=== PATIENT | female | born 1950 | race Caucasian/White ===

== ENCOUNTER 2018-04-04 06:19 | Inpatient (IN) | payer OTHER, BC ==
[2018-04-03 09:41] VITALS: BMI 45.9
[2018-04-04] MEDS ORDERED: PROPOFOL 20 ML ONE ×2 (07:49)
[2018-04-04] MEDS ORDERED: ROCURONIUM BROMIDE 50 MG/5 ML VIAL ONE ×3 (07:49→12:12)
[2018-04-04] MEDS ORDERED: MIDAZOLAM HCL 2 MG/2 ML SINGLE DOSE VIAL ONE (07:49)
[2018-04-04] MEDS ORDERED: LIDOCAINE HCL/PF 2% SDV 5ML VIAL ONE (07:50)
[2018-04-04] MEDS ORDERED: THROMBIN (BOVINE) 20,000 UNIT VIAL TP ONE (08:07)
[2018-04-04] MEDS ORDERED: VANCOMYCIN 1,000 MG VIAL (RESTRICTED TO ID ONLY) ONE ×2 (08:07→08:32)
[2018-04-04] MEDS ORDERED: GENTAMICIN SO4 80 MG/2 ML VIAL ONE (08:07)
--- NOTE | 2018-04-04 08:18 | HP ---
History & Physical Update - History History: No Change - Physical Physical: No Change - Assessment Assessment: No Change - Plan Plan: No Change (no change since visit on 03/30/18)
[2018-04-04] MEDS ORDERED: SODIUM CHLORIDE 0.9% P/F 10 ML VIAL IJ ONE ×2 (08:32→12:37)
[2018-04-04] MEDS ORDERED: ceFAZolin SODIUM 1 GM VIAL ONE ×3 (08:32→20:00)
[2018-04-04] MEDS ORDERED: ceFAZolin SODIUM 1 GM VIAL IVPB ONE (08:33)
[2018-04-04] MEDS ORDERED: VANCOMYCIN 1,000 MG VIAL (RESTRICTED TO ID ONLY) IVPB ONE (08:34)
[2018-04-04] MEDS ORDERED: DEXAMETHASONE SOD PHOSPHATE 4 MG/1 ML VIAL ONE (08:45)
[2018-04-04] MEDS ORDERED: ONDANSETRON 4 MG/2 ML VIAL ONE (08:45)
[2018-04-04] MEDS ORDERED: THROMBIN (BOVINE) 5,000 UNIT VIAL TP ONE (10:50)
[2018-04-04] MEDS ORDERED: ONDANSETRON 4 MG/2 ML VIAL IVPUSH PRN ×2 (11:09→13:50)
[2018-04-04] MEDS ORDERED: DEXAMETHASONE SOD PHOSPHATE 4 MG/1 ML VIAL IVPUSH PRN (11:09)
[2018-04-04] MEDS ORDERED: PROMETHAZINE HCL 25 MG/1 ML VIAL IVPB PRN (11:09)
[2018-04-04] MEDS ORDERED: LACTATED RINGERS SOLUTION 1,000 ML IV SCH (11:15)
[2018-04-04] MEDS ORDERED: ACETAMINOPHEN INJECTION 100 ML IVPB ONE (11:41)
[2018-04-04] MEDS ORDERED: GLYCOPYRROLATE 0.2 MG/1 ML VIAL ONE (11:54)
[2018-04-04] MEDS ORDERED: NEOSTIGMINE METHYLSULFATE 0.5 MG/ML - 10 ML MDV ONE (11:54)
--- NOTE | 2018-04-04 11:59 | EKG ---
Test Reason : Blood Pressure : / mmHG Vent. Rate : 064 BPM Atrial Rate : 064 BPM P-R Int : 186 ms QRS Dur : 074 ms QT Int : 414 ms P-R-T Axes : 060 -25 027 degrees QTc Int : 427 ms NORMAL SINUS RHYTHM LOW VOLTAGE QRS NONSPECIFIC ST AND T WAVE ABNORMALITY ABNORMAL ECG Confirmed by MD LAURIE, TERA ([id number]) on 04/04/2018 11:58:46 AM Referred By: YUE CARSON Confirmed By:TERA SULLIVAN MD
[2018-04-04] MEDS ORDERED: BUPIVACAINE HCL/PF 0.5% (5MG/ML) 10 ML VIAL ONE (12:21)
[2018-04-04] MEDS ORDERED: diphenhydrAMINE HCL 25 MG CAPSULE (FP) PO PRN (13:50)
[2018-04-04] MEDS ORDERED: NITROGLYCERIN SUBLINGUAL 1/150 0.4 MG TAB SL PRN (14:03)
--- NOTE | 2018-04-04 14:29 | OP ---
Operative Note - Note: Operative Date: 04/04/18 Pre-Operative Diagnosis: lumbar stenosis, Degenerative disc disease, splondylosis, Operation: L3-S1 lumbar laminectomies with microdiscectomies and interbody cages at L4-L5 and L5-S1, and posterior fuison. Post-Operative Diagnosis: Same as Pre-op Surgeon: Cleveland Kimble Physician Anesthesiologist: Lori Velasquez Anesthesiologist/CARDIOLOGY NURSE PRACTITIONER: Julio Rosenbaum Anesthesia: General Estimated Blood Loss (mls): 750 Drains & Tubes with Location: J/P to at right lumbar paravetebral area Drains, Volume Out (mls): 100 (maloney) Fluid Volume Replaced (mls): 2,300 Operative Report Dictated: Yes
--- NOTE | 2018-04-04 14:33 | SURG ---
Surgery Sexologist Note Sexologist: Lori Velasquez PA-C Date of Service: 04/04/18 Diagnosis: lumbar stenosis, Degenerative disc disease, splondylosis, Procedure: L3-S1 lumbar laminectomies with microdiscectomies and interbody cages at L4-L5 and L5-S1, and posterior fuison. I was present for the entirety of the operative procedure. For further detail, please refer to operative report. Visit type - Case Type Case Type: Scheduled - Emergency Emergency Visit: No - New patient This patient is new to me today: Yes Date on this admission: 04/04/18
[2018-04-04] MEDS: LACTATED RINGERS SOLUTION 1,000 ML/1,000 ML INFUS.BAG IV SCH (14:50)
[2018-04-04] MEDS ORDERED: HYDROmorphone *PCA* 10MG/50ML DISP.SYRIN PCA SCH (15:30)
[2018-04-04] MEDS: DOCUSATE SODIUM 100 MG CAPSULE (FP) PO SCH ×2 (16:00→21:39)
[2018-04-04] MEDS ORDERED: PNEUMOC 13-VAL CONJ-DIP CRM/PF 0.5 ML DISP.SYRIN IM ONE (17:00)
[2018-04-04] MEDS ORDERED: ALPRAZolam 2 MG TABLET PO PRN (20:00)
[2018-04-04] MEDS ORDERED: CEFAZOLIN 1 GM in DEXTROSE 5%-WATER - 50 ML IVPB SCH (20:00)
[2018-04-04] MEDS ORDERED: CEFAZOLIN 1 GM/D5W 1 GM/50 ML BAG IVPB SCH (20:00)
[2018-04-04] MEDS ORDERED: DEXTROSE 5%-WATER - 50 ML IVPB ONE (20:00)
[2018-04-04] MEDS: CEFAZOLIN 1 GM in DEXTROSE 5%-WATER - 50 ML IVPB SCH (20:04)
[2018-04-04] MEDS: HEPARIN NA (PORCINE) 5,000 UNITS/ML 1ML VIAL SQ SCH (21:39)
[2018-04-04] MEDS: SOLIFENACIN SUCCINATE 5 MG TAB (FP) PO SCH (21:39)
[2018-04-05] MEDS ORDERED: ceFAZolin SODIUM 1 GM VIAL ONE ×3 (04:00→20:39)
[2018-04-05] MEDS ORDERED: DEXTROSE 5%-WATER - 50 ML IVPB ONE ×3 (04:00→20:39)
[2018-04-05] MEDS: CEFAZOLIN 1 GM in DEXTROSE 5%-WATER - 50 ML IVPB SCH ×3 (04:02→20:42)
[2018-04-05] MEDS: HEPARIN NA (PORCINE) 5,000 UNITS/ML 1ML VIAL SQ SCH ×3 (05:54→21:15)
[2018-04-05] MEDS: DOCUSATE SODIUM 100 MG CAPSULE (FP) PO SCH ×3 (05:54→21:15)
[2018-04-05 08:39] LABS: HEMATOCRIT 29.2 % (32.4-45.2); HEMOGLOBIN 9.8 GM/dL (10.7-15.3); MCH 29.2 pg (25.7-33.7); MCHC 33.5 g/dl (32.0-36.0); MEAN CELL VOLUME 87.3 fl (80-96); MEAN PLT VOLUME 7.4 fl (7.5-11.1); PLATELET COUNT 234 K/MM3 (134-434); RBC 3.34 M/mm3 (3.60-5.2); RDW 14.4 % (11.6-15.6); WHITE BLOOD COUNT 18.1 K/mm3 (4.0-10.0)
[2018-04-05] MEDS ORDERED: HYDROmorphone HCL CARPU-JECT 1 MG/1 ML DISP.SYRIN IVPB PRN ×2 (09:00→09:04)
[2018-04-05 09:03] LABS: BLOOD UREA NITROGEN 26 mg/dL (7-18); CALCIUM 8.2 mg/dL (8.5-10.1); CHLORIDE 103 mmol/L (98-107); GLUCOSE,RANDOM 143 mg/dL (74-106); POTASSIUM 3.9 mmol/L (3.5-5.1); SODIUM 138 mmol/L (136-145)
--- NOTE | 2018-04-05 09:03 | PN ---
Progress Note (short form) - Note Progress Note: Post op day#1.S/P L3-S1 Laminectomy with decompression,instrumentation,fusion and interbody cage placement under Ga uneventful.Patient stable and c/o pain score of 2-3/10 on Dilaudid continuous pickling line pickler helper.DISPENSING OPTICIAN is DC today and patient put on PRN pain medication.No any anesthesia related problem.Patient DC from the anesthesia care.
[2018-04-05 09:05] LABS: ANION GAP 6 (8-16); CO2 29 mmol/L (21-32)
--- NOTE | 2018-04-05 09:38 | PN ---
Progress Note (short form) - Note Progress Note: SUrgery POD #1 L3-S1 lumbar laminectomies with microdiscectomies and interbody cages at L4-L5 and L5-S1, and posterior fuison. Patient seen and examined at bedside with no complaints. Her pain is well controlled with PIPE SETTER and she is tolerating her diet. She denies any CP, SOB, Nausea, chills or fever. Of note Patient states she has history of esophageal spasm which is intermittent and occurs with irritation and she has vomited once as a result this morning. She had a formal work up in the past but was not diagnosed with dysphagia does not have swallowing difficulty. Vital Signs Temp 99 F 04/05/18 06:47 Pulse 20 L 04/05/18 06:47 Resp 20 04/05/18 02:10 BP 90/54 04/05/18 06:47 Pulse Ox 97 04/04/18 21:00 Intake & Output 04/04/18 04/04/18 04/05/18 11:59 23:59 11:59 Intake Total 2350 913 863 Output Total 850 900 370 Balance 1500 13 493 Intake: IV 2350 863 813 LACTATED RINGERS SOLUTION 563 813 1,000 ml In 1,000 ml @ 125 mls/hr IV ASDIR PAM Rx#:[id number] IVPB 50 50 Output: Drainage 450 120 Right Lower Back 300 120 Urine 100 450 250 Carlin 300 250 Estimated Blood Loss 750 Other: Voiding Method Indwelling Catheter CBC, BMP 04/05/18 06:30 04/05/18 06:30 PE: A&Ox3, NAD unlabored resp on RA Lumbar spine dressing c/d/i with j/p drain in good position and draining SS d/c , surrounding tissue intact. b/l LE compartments soft, supple and non-tender to palpation with +2 pedal pulses. + dorsi/plantar flexion b/l Problem List - Problems (1) Discogenic syndrome, lumbar Assessment/Plan: POD#1 L3-S1 Laminectomy with interbody fusion doing well 1) TLSO brace when OOB 2) OOB as tolerated 3) DVT and GI prophylaxis 4) D/C planning home vs rehab Code(s): M51.26 - OTHER INTERVERTEBRAL DISC DISPLACEMENT, LUMBAR REGION
[2018-04-05] MEDS: LOSARTAN POTASSIUM 50 MG TABLET (FP) PO SCH (10:14)
[2018-04-05] MEDS: HYDROCHLOROTHIAZIDE 25 MG TABLET (FP) PO SCH (10:14)
[2018-04-05] MEDS: FERROUS SO4 325 MG TABLET (FP) PO SCH (10:14)
[2018-04-05] MEDS: FOLIC ACID 1 MG TABLET (FP) PO SCH (10:14)
[2018-04-05] MEDS: PANTOPRAZOLE 40 MG TABLET (FP) PO SCH (10:14)
--- NOTE | 2018-04-05 10:50 | HP ---
Admitting History and Physical - Past Medical History FERN PICKER: No: CVA Cardiovascular: Yes: HTN. 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) Home Medications - Allergies Allergies/Adverse Reactions: Allergies Allergy/AdvReac Type Severity Reaction Status Date / Time No Known Drug Allergies Allergy Verified 04/04/18 14:51 naproxen AdvReac Severe Vomiting Verified 04/04/18 07:07 - Home Medications Home Medications: Ambulatory Orders Metoprolol Succinate [Toprol Xl] 50 mg PO DAILY 09/11/14 Nitroglycerin Sublingual [Nitrostat -] 0.4 mg SL PRN PRN 09/11/14 Solifenacin Succinate [VESIcare] 10 mg PO HS 09/11/14 Acetaminophen [Tylenol] 650 mg PO PRN PRN 09/24/14 Diltiazem Cd [Cardizem Cd -] 240 mg PO DAILY 09/24/14 Losartan/Hydrochlorothiazide [Losartan-Hctz 100-25 mg Tab] 1 each PO DAILY 09/24 Pantoprazole Sodium [Protonix -] 40 mg PO DAILY #40 tablet.ec 09/30/14 Alprazolam 1 mg PO PRN PRN 04/03/18 Aspirin [Ecotrin] 81 mg PO DAILY 04/03/18 Cholecalciferol (Vitamin D3) [Vitamin D3 -] 400 unit PO DAILY 04/03/18 Multivit-Min/Iron/Folic/Lutein [Centrum Silver Women Tablet] 1 each PO DAILY 06/13 Physical Examination Vital Signs: Vital Signs Temperature 99 F 04/05/18 06:47 Pulse Rate 20 L 04/05/18 06:47 Respiratory Rate 20 04/05/18 02:10 Blood Pressure 90/54 04/05/18 06:47 O2 Sat by Pulse Oximetry (%) 97 04/04/18 21:00 Labs: CBC, BMP 04/05/18 06:30 04/05/18 06:30 Problem List - Problems (1) Discogenic syndrome, lumbar Assessment/Plan: Operative Date: 04/04/18 Pre-Operative Diagnosis: lumbar stenosis, Degenerative disc disease, splondylosis, Operation: L3-S1 lumbar laminectomies with microdiscectomies and interbody cages at L4-L5 and L5-S1, and posterior fuison. Post-Operative Diagnosis: Same as Pre-op Surgeon: Cleveland Kimble Cut Lace Machine Operator: Lori Velasquez Anesthesiologist/MARBLE WORKER: Julio Rosenbaum Further plan per ns Code(s): M51.26 - OTHER INTERVERTEBRAL DISC DISPLACEMENT, LUMBAR REGION (2) HTN (hypertension) Assessment/Plan: -monitor Vital Signs Period Temp Pulse Resp BP Sys/Jennings Pulse Ox Last 24 Hr 97.4 F-99 F 20-77 15-20 90-105/52-69 94-100 Code(s): I10 - ESSENTIAL (PRIMARY) HYPERTENSION (3) Leukocytosis Assessment/Plan: -pt received steroids -follow Code(s): D72.829 - ELEVATED WHITE BLOOD CELL COUNT, UNSPECIFIED (4) Hyperglycemia Assessment/Plan: -monitor -a1c Code(s): R73.9 - HYPERGLYCEMIA, UNSPECIFIED (5) Obesities, morbid Code(s): E66.01 - MORBID (SEVERE) OBESITY DUE TO EXCESS CALORIES
[2018-04-05 12:20] LABS: ALBUMIN 2.7 g/dl (3.4-5.0); ALK PHOS 48 U/L (45-117); BILIRUBIN,DIRECT < 0.2 mg/dL (0.0-0.2); BILIRUBIN,TOTAL 0.3 mg/dL (0.2-1.0); SGOT/AST 20 U/L (15-37); SGPT/ALT 19 U/L (12-78); TOT PROT 5.4 g/dl (6.4-8.2)
[2018-04-05 12:59] LABS: URINE APPEARANCE CLEAR; URINE BILIRUBIN NEGATIVE (<2.0 mg/dL); URINE COLOR YELLOW; URINE GLUCOSE (UA) NEGATIVE (NEGATIVE); URINE KETONE NEGATIVE (NEGATIVE); URINE LEUK ESTERASE NEGATIVE (NEGATIVE); URINE NITRITE NEGATIVE (NEGATIVE); URINE PROTEIN NEGATIVE (NEGATIVE); URINE UROBILINOGEN NEGATIVE mg/dL (0.2-1.0)
[2018-04-05] MEDS: oxyCODONE HCL 5 MG TABLET PO PRN ×2 (14:13→21:15)
[2018-04-05] MEDS: LACTATED RINGERS SOLUTION 1,000 ML/1,000 ML INFUS.BAG IV SCH ×2 (16:06)
--- NOTE | 2018-04-05 17:05 | PATH ---
Surgical Pathology Report Patient Name: ABIGAIL GAVIRIA Med. Rec. #: [id number] /Age/Gender: 1950 (Age: 68) / F Account: [id number] Location: [facility] MED/SURG Taken: 04/04/2018 Received: 04/04/2018 Reported: 04/05/2018 Physicians: Cleveland Martinez M.D. Specimen(s) Received JUXTA FACET CYST Clinical History Lumbar radiculopathy, lumbar spondylosis Final Diagnosis JUXTA FACET CYST, L3-S1, LUMBAR LAMINECTOMY WITH FUSION: SYNOVIAL TISSUE WITH FOCAL FIBROSIS. Electronically Signed Vinita Cloud M.D. Gross Description Received in formalin, labeled "juxta facet cyst" is a campbell irregular portion of soft tissue measuring 1 x 0.3 x 0.2 cm. The specimen is submitted in toto in one cassette. MARTINEZ/04/04/2018 brooklynn/04/04/2018
[2018-04-05] MEDS: SOLIFENACIN SUCCINATE 5 MG TAB (FP) PO SCH (21:15)
[2018-04-06] MEDS ORDERED: DEXTROSE 5%-WATER - 50 ML IVPB ONE ×3 (03:20→21:50)
[2018-04-06] MEDS ORDERED: ceFAZolin SODIUM 1 GM VIAL ONE ×3 (03:20→21:50)
[2018-04-06] MEDS: CEFAZOLIN 1 GM in DEXTROSE 5%-WATER - 50 ML IVPB SCH ×3 (03:25→21:55)
[2018-04-06] MEDS: DOCUSATE SODIUM 100 MG CAPSULE (FP) PO SCH ×3 (05:54→21:55)
[2018-04-06] MEDS: HEPARIN NA (PORCINE) 5,000 UNITS/ML 1ML VIAL SQ SCH ×3 (05:54→21:53)
[2018-04-06 08:41] LABS: BASO % 0.6 % (0-2.0); EOS % 0.5 % (0-4.5); HEMATOCRIT 30.9 % (32.4-45.2); HEMOGLOBIN 10.3 GM/dL (10.7-15.3); MCH 29.2 pg (25.7-33.7); MCHC 33.4 g/dl (32.0-36.0); MEAN CELL VOLUME 87.5 fl (80-96); MONO % 10.4 % (3.8-10.2); NEUT % 66.5 % (42.8-82.8); PLATELET COUNT 239 K/MM3 (134-434); RBC 3.53 M/mm3 (3.60-5.2); RDW 14.5 % (11.6-15.6); WHITE BLOOD COUNT 16.8 K/mm3 (4.0-10.0)
[2018-04-06 09:18] LABS: ALBUMIN 2.9 g/dl (3.4-5.0); ANION GAP 10 (8-16); BLOOD UREA NITROGEN 27 mg/dL (7-18); CALCIUM 8.2 mg/dL (8.5-10.1); CHLORIDE 99 mmol/L (98-107); CO2 29 mmol/L (21-32); GLUCOSE,RANDOM 110 mg/dL (74-106); POTASSIUM 3.6 mmol/L (3.5-5.1); SODIUM 138 mmol/L (136-145)
[2018-04-06 09:21] LABS: ALK PHOS 52 U/L (45-117); BILIRUBIN,TOTAL 0.4 mg/dL (0.2-1.0); SGOT/AST 28 U/L (15-37); SGPT/ALT 19 U/L (12-78); TOT PROT 5.9 g/dl (6.4-8.2)
[2018-04-06] MEDS: FERROUS SO4 325 MG TABLET (FP) PO SCH (09:47)
[2018-04-06] MEDS: PANTOPRAZOLE 40 MG TABLET (FP) PO SCH (09:47)
[2018-04-06] MEDS: HYDROCHLOROTHIAZIDE 25 MG TABLET (FP) PO SCH (09:47)
[2018-04-06] MEDS: FOLIC ACID 1 MG TABLET (FP) PO SCH (09:47)
[2018-04-06] MEDS: LOSARTAN POTASSIUM 50 MG TABLET (FP) PO SCH (09:47)
[2018-04-06] MEDS ORDERED: MAG HYDROX/AL HYDROX/SIMETH 30 ML UNIT-DOSE CUP PO PRN (11:19)
--- NOTE | 2018-04-06 11:24 | PN ---
Progress Note, Physician Chief Complaint: patient in chair with GAURI johnson said she vomitted yesterday and now her throat feels sore no nausea - Current Medication List Current Medications: Active Medications Al Hydroxide/Mg Hydroxide (Mylanta Oral Suspension -) 30 ml PO Q6H PRN PRN Reason: DYSPEPSIA Alprazolam (Xanax -) 1 mg PO DAILY PRN PRN Reason: ANXIETY Dexamethasone Sodium Phosphate (Decadron Injection -) 4 mg IVPUSH ONCE PRN PRN Reason: NAUSEA AND/OR VOMITING Diltiazem HCl (Cardizem Cd -) 240 mg PO DAILY [facility] Last Admin: 04/06/18 09:47 Dose: 240 mg Diphenhydramine HCl (Benadryl Injection -) 12.5 mg IVPUSH ONCE PRN PRN Reason: FOR ITCHING Diphenhydramine HCl (Benadryl -) 25 mg PO Q6H PRN PRN Reason: FOR ITCHING Docusate Sodium (Colace -) 100 mg PO TID [facility] Last Admin: 04/06/18 05:54 Dose: 100 mg Fentanyl (Sublimaze Injection -) 50 mcg IVPUSH [id number] PRN PRN Reason: PAIN-PACU ORDER X 4 DOSES ONLY Ferrous Sulfate (Feosol -) 325 mg PO DAILY [facility] Last Admin: 04/06/18 09:47 Dose: 325 mg Folic Acid (Folic Acid -) 1 mg PO DAILY [facility] Last Admin: 04/06/18 09:47 Dose: 1 mg Heparin Sodium (Porcine) (Heparin -) 5,000 unit SQ TID [facility] Last Admin: 04/06/18 05:54 Dose: 5,000 unit Hydrochlorothiazide (Hctz -) 25 mg PO DAILY [facility] Last Admin: 04/06/18 09:47 Dose: 25 mg Hydromorphone HCl (Dilaudid Injection -) 1 mg IVPB Q4H PRN PRN Reason: PAIN LEVEL 6-10 Lactated Ringer's (Lactated Ringers Solution) 1,000 ml in 1,000 mls @ 125 mls/ hr IV ASDIR [facility] Last Admin: 04/05/18 16:06 Dose: Not Given Cefazolin Sodium 1 gm/ (Dextrose) 50 mls @ 100 mls/hr IVPB Q8H [facility] Last Admin: 04/06/18 03:25 Dose: 100 mls/hr Losartan Potassium (Cozaar -) 100 mg PO DAILY [facility] Last Admin: 04/06/18 09:47 Dose: 100 mg Metoprolol Succinate (Toprol Xl -) 50 mg PO DAILY [facility] Last Admin: 04/06/18 09:47 Dose: 50 mg Nitroglycerin (Nitrostat -) 0.4 mg SL PRN PRN PRN Reason: FOR CHEST PAIN Ondansetron HCl (Zofran Injection) 4 mg IVPUSH Q4H PRN PRN Reason: NAUSEA AND/OR VOMITING Last Admin: 04/05/18 11:27 Dose: 4 mg Ondansetron HCl (Zofran Injection) 4 mg IVPUSH Q6H PRN PRN Reason: NAUSEA Oxycodone HCl (Roxicodone -) 10 mg PO Q4H PRN PRN Reason: PAIN LEVEL 4 - 6 Last Admin: 04/05/18 21:15 Dose: 10 mg Pantoprazole Sodium (Protonix -) 40 mg PO DAILY [facility] Last Admin: 04/06/18 09:47 Dose: 40 mg Promethazine HCl (Phenergan Injection -) 12.5 mg IVPB Q6H PRN PRN Reason: NAUSEA AND/OR VOMITING Solifenacin (Vesicare -) 10 mg PO HS [facility] Last Admin: 04/05/18 21:15 Dose: 10 mg - Objective Vital Signs: Vital Signs Temperature 99.5 F 04/06/18 06:25 Pulse Rate 62 04/06/18 06:25 Respiratory Rate 20 04/06/18 06:25 Blood Pressure 88/54 04/06/18 06:25 O2 Sat by Pulse Oximetry (%) 95 04/05/18 21:00 Constitutional: Yes: Calm Cardiovascular: Yes: Regular Rate and Rhythm, S1, S2 Respiratory: Yes: CTA Bilaterally Gastrointestinal: Yes: Normal Bowel Sounds, Soft Musculoskeletal: Yes: Other (back brace) Neurological: Yes: Alert, Oriented Labs: CBC, BMP 04/06/18 07:00 04/06/18 07:00 Problem List - Problems (1) Discogenic syndrome, lumbar Assessment/Plan: Note: Operative Date: 04/04/18 Pre-Operative Diagnosis: lumbar stenosis, Degenerative disc disease, splondylosis, Operation: L3-S1 lumbar laminectomies with microdiscectomies and interbody cages at L4-L5 and L5-S1, and posterior fuison. Post-Operative Diagnosis: Same as Pre-op Surgeon: Cleveland Kimble Vice President Sales: Lori Velasquez Anesthesiologist/FACILITIES OFFICER: Julio Rosenbaum Anesthesia: General Estimated Blood Loss (mls): 750 Drains & Tubes with Location: J/P to at right lumbar paravetebral area Drains, Volume Out (mls): 100 (maloney) Fluid Volume Replaced (mls): 2,300 Operative Report Dictated: Yes TLSO brace pain control dvt ppx Code(s): M51.26 - OTHER INTERVERTEBRAL DISC DISPLACEMENT, LUMBAR REGION (2) HTN (hypertension) Assessment/Plan: given low BP stop hctz Code(s): I10 - ESSENTIAL (PRIMARY) HYPERTENSION (3) Esophageal spasm Assessment/Plan: h/o esophageal spasm she vomited yesterday no nausea has had work up in past was give nitroglycerin but her Blood pressure drop significantly so she stopped taking it she was told she does not have dysphagia and no swallowing difficulty will have GI see her in hospital [facility] prn Code(s): K22.4 - DYSKINESIA OF ESOPHAGUS
[2018-04-06] MEDS ORDERED: LOSARTAN POTASSIUM 50 MG TABLET (FP) PO SCH (11:28)
--- NOTE | 2018-04-06 20:15 | CON.GI ---
Consult Consult Specialty:: Gastroenterology Referred by:: Dr Ness Reason for Consultation:: Dysphagia - History of Present Illness Chief Complaint: Vomiting due to dysphagia History of Present Illness: 68F has been experiencing dysphagia for liquids and solids that has been causing her vomiting almost immediately after swallowing. She feels things are getting stuck in the upper chest. She had similar problems after hip surgery. She has been seen by my partner, Dr. 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 She is chronically on a calcium fatuma. She has tried nitroglycerin for her esophageal spasms in the past but this has caused her to become hypotensive. Oddly enough she can swallow bread but water and yogurt have led to vomiting. She reports that NSAIDs have triggered her spasms in the past. She has not moved her bowels since the surgery but denies bloating or abdominal pain. She last had a colonoscopy with Dr Aparicio on 04/08/10 when mild diverticlosis wa snoted in the sigmoid colon. Three small polyps were removed from the rectum and rectosigmoid colon. - History Source History Provided By: Patient Limitations to Obtaining History: No Limitations - Past Medical History Cardio/Vascular: Yes: HTN Gastrointestinal: Yes: Diverticulosis, Other (Nutcracker esophagus - spasms, rectal adenomas) Hepatobiliary: Yes: Cholelithiasis (calcified) ...: No Musculoskeletal: Yes: Chronic low back pain, Osteoarthritis, Other (disc ds) Endocrine: Yes: Other (prediabetic) Additional Medical History: Morbid obesity. Early cataract. 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 Place of : [facility] History of Recent Travel: No Home Medications - Allergies Allergies/Adverse Reactions: Allergies Allergy/AdvReac Type Severity Reaction Status Date / Time naproxen AdvReac Severe Vomiting Verified 04/04/18 07:07 - Home Medications Home Medications: Ambulatory Orders Metoprolol Succinate [Toprol Xl] 50 mg PO DAILY 09/11/14 Nitroglycerin Sublingual [Nitrostat -] 0.4 mg SL PRN PRN 09/11/14 Solifenacin Succinate [VESIcare] 10 mg PO HS 09/11/14 Acetaminophen [Tylenol] 650 mg PO PRN PRN 09/24/14 Diltiazem Cd [Cardizem Cd -] 240 mg PO DAILY 09/24/14 Losartan/Hydrochlorothiazide [Losartan-Hctz 100-25 mg Tab] 1 each PO DAILY 09/24 Pantoprazole Sodium [Protonix -] 40 mg PO DAILY #40 tablet.ec 09/30/14 Alprazolam 1 mg PO PRN PRN 04/03/18 Aspirin [Ecotrin] 81 mg PO DAILY 04/03/18 Cholecalciferol (Vitamin D3) [Vitamin D3 -] 400 unit PO DAILY 04/03/18 Multivit-Min/Iron/Folic/Lutein [Centrum Silver Women Tablet] 1 each PO DAILY 06/13 Walker [Ultra-Light Rollator] 1 each 5XD #1 each 04/06/18 Family Disease History - Family Disease History Family Disease History: CA: Sister (breast cancer), Other: Father ( of COPD) , Mother (alive at 90) Review of Systems - Review of Systems Constitutional: reports: No Symptoms Eyes: reports: No Symptoms HENT: reports: Difficult Swallowing, Throat Pain Neck: reports: No Symptoms Cardiovascular: reports: No Symptoms Respiratory: reports: Exercise Intolerance Gastrointestinal: reports: Dysphagia Musculoskeletal: reports: Back Pain, Joint Pain Physical Exam-GI Vital Signs: Vital Signs Temperature 98.5 F 04/06/18 19:53 Pulse Rate 65 04/06/18 19:53 Respiratory Rate 20 04/06/18 19:53 Blood Pressure 95/62 04/06/18 19:53 O2 Sat by Pulse Oximetry (%) 95 04/06/18 09:00 CBC,CMP WBC 16.8 K/mm3 (4.0-10.0) H 04/06/18 07:00 RBC 3.53 M/mm3 (3.60-5.2) L 04/06/18 07:00 Hgb 10.3 GM/dL (10.7-15.3) L 04/06/18 07:00 Hct 30.9 % (32.4-45.2) L 04/06/18 07:00 MCV 87.5 fl (80-96) 04/06/18 07:00 MCH 29.2 pg (25.7-33.7) 04/06/18 07:00 MCHC 33.4 g/dl (32.0-36.0) 04/06/18 07:00 RDW 14.5 % (11.6-15.6) 04/06/18 07:00 Plt Count 239 K/MM3 (134-434) 04/06/18 07:00 MPV 8.0 fl (7.5-11.1) 04/06/18 07:00 Absolute Neuts (auto) 11.2 # 04/06/18 07:00 Neutrophils % 66.5 % (42.8-82.8) 04/06/18 07:00 Lymphocytes % 22.0 % (8-40) 04/06/18 07:00 Monocytes % 10.4 % (3.8-10.2) H 04/06/18 07:00 Eosinophils % 0.5 % (0-4.5) 04/06/18 07:00 Basophils % 0.6 % (0-2.0) 04/06/18 07:00 Nucleated RBC % 0 % (0-0) 04/06/18 07:00 Sodium 138 mmol/L (136-145) 04/06/18 07:00 Potassium 3.6 mmol/L (3.5-5.1) 04/06/18 07:00 Chloride 99 mmol/L (98-107) 04/06/18 07:00 Carbon Dioxide 29 mmol/L (21-32) 04/06/18 07:00 Anion Gap 10 (8-16) 04/06/18 07:00 BUN 27 mg/dL (7-18) H 04/06/18 07:00 Creatinine 1.0 mg/dL (0.55-1.02) 04/06/18 07:00 Creat Clearance w eGFR 55.47 (>60) 04/06/18 07:00 Random Glucose 110 mg/dL (74-106) H 04/06/18 07:00 Hemoglobin A1c % 6.5 % (4.8-6.0) H 04/05/18 06:30 Calcium 8.2 mg/dL (8.5-10.1) L 04/06/18 07:00 Total Bilirubin 0.4 mg/dL (0.2-1.0) 04/06/18 07:00 Direct Bilirubin < 0.2 mg/dL (0.0-0.2) 04/05/18 06:30 AST 28 U/L (15-37) 04/06/18 07:00 ALT 19 U/L (12-78) 04/06/18 07:00 Alkaline Phosphatase 52 U/L (45-117) 04/06/18 07:00 Total Protein 5.9 g/dl (6.4-8.2) L 04/06/18 07:00 Albumin 2.9 g/dl (3.4-5.0) L 04/06/18 07:00 Current Medications Generic Name Dose Route Start Last Admin Trade Name Freq PRN Reason Stop Dose Admin Al Hydroxide/Mg Hydroxide 30 ml 04/06/18 11:19 Mylanta Oral Suspension - PO Q6H PRN DYSPEPSIA Alprazolam 1 mg 04/04/18 20:00 Xanax - PO DAILY PRN ANXIETY Dexamethasone Sodium Phosphate 4 mg 04/04/18 11:09 Decadron Injection - IVPUSH ONCE PRN NAUSEA AND/OR VOMITING Diltiazem HCl 240 mg 04/06/18 11:29 Cardizem Cd - PO DAILY PAM Diphenhydramine HCl 12.5 mg 04/04/18 11:09 Benadryl Injection - IVPUSH ONCE PRN FOR ITCHING Diphenhydramine HCl 25 mg 04/04/18 13:50 Benadryl - PO Q6H PRN FOR ITCHING Docusate Sodium 100 mg 04/04/18 14:00 04/06/18 15:39 Colace - PO 100 mg TID PAM Administration Fentanyl 50 mcg 04/04/18 11:09 Sublimaze Injection - IVPUSH [id number] PRN PAIN-PACU ORDER X 4 DOSES ONLY Ferrous Sulfate 325 mg 04/05/18 10:00 04/06/18 09:47 Feosol - PO 325 mg DAILY PAM Administration Folic Acid 1 mg 04/05/18 10:00 04/06/18 09:47 Folic Acid - PO 1 mg DAILY PAM Administration Heparin Sodium (Porcine) 5,000 unit 04/04/18 22:00 04/06/18 15:39 Heparin - SQ 5,000 unit TID PAM Administration Lactated Ringer's 1,000 ml in 1,000 mls @ 125 mls/hr 04/04/18 14:00 04/05/18 16:06 Lactated Ringers Solution IV Not Given ASDIR PAM Cefazolin Sodium 1 gm/ 50 mls @ 100 mls/hr 04/04/18 20:00 04/06/18 13:01 Dextrose IVPB 100 mls/hr Q8H PAM Administration Losartan Potassium 100 mg 04/06/18 11:28 Cozaar - PO DAILY [facility] Metoprolol Succinate 50 mg 04/06/18 11:28 Toprol Xl - PO DAILY [facility] Nitroglycerin 0.4 mg 04/04/18 14:03 Nitrostat - SL PRN PRN FOR CHEST PAIN Ondansetron HCl 4 mg 04/04/18 11:09 04/05/18 11:27 Zofran Injection IVPUSH 4 mg Q4H PRN Administration NAUSEA AND/OR VOMITING Ondansetron HCl 4 mg 04/04/18 13:50 Zofran Injection IVPUSH Q6H PRN NAUSEA Oxycodone HCl 10 mg 04/05/18 09:01 04/05/18 21:15 Roxicodone - PO 10 mg Q4H PRN Administration PAIN LEVEL 4 - 6 Pantoprazole Sodium 40 mg 04/05/18 10:00 04/06/18 09:47 Protonix - PO 40 mg DAILY PAM Administration Promethazine HCl 12.5 mg 04/04/18 11:09 Phenergan Injection - IVPB Q6H PRN NAUSEA AND/OR VOMITING Solifenacin 10 mg 04/04/18 22:00 04/05/18 21:15 Vesicare - PO 10 mg HS PAM Administration Constitutional: Yes: Calm Eyes: Yes: Conjunctiva Clear HENT: Yes: Normocephalic Neck: Yes: Supple Cardiovascular: Yes: Regular Rate and Rhythm Respiratory: Yes: CTA Bilaterally Gastrointestinal Inspection: Yes: Hernia (umbilical and supraumbilical hernias) , Scars (healed Pfannensteil), Other (obese) ...Auscultate: Yes: Normoactive Bowel Sounds ...Palpate: Yes: Soft, Other (nontender) ...Rectal Exam: Yes: Guaiac Negative (no masses, brown guaiac negative stool) Neurological: Yes: Alert, Oriented Labs: CBC, BMP 04/06/18 07:00 04/06/18 07:00 Problem List - Problems (1) Dysphagia Assessment/Plan: I believe that Cece's esophageal spasms reflecting her nutcracker esophagus may have been stimulated by having been intubated and should subside with time. She is already receiving a Ca fatuma which is therapeutic for this. I will order nitroglycerin to use sublingually only if she has a prolonged spasm and feels something has gotten stuck in her esophagus as this does predispose her to hypotensive episodes. NSAIDs should be avoided given her history Code(s): R13.10 - DYSPHAGIA, UNSPECIFIED Qualifiers: Dysphagia type: pharyngeal phase Qualified Code(s): R13.13 - Dysphagia, pharyngeal phase (2) Nutcracker esophagus Code(s): K22.4 - DYSKINESIA OF ESOPHAGUS (3) Colon adenoma Code(s): D12.6 - BENIGN NEOPLASM OF COLON, UNSPECIFIED (4) Diverticula of colon Code(s): K57.30 - DVRTCLOS OF LG INT W/O PERFORATION OR ABSCESS W/O BLEEDING (5) Vomiting Code(s): R11.10 - VOMITING, UNSPECIFIED (6) Esophageal spasm Code(s): K22.4 - DYSKINESIA OF ESOPHAGUS (7) Obesities, morbid Code(s): E66.01 - MORBID (SEVERE) OBESITY DUE TO EXCESS CALORIES
[2018-04-06] MEDS: SOLIFENACIN SUCCINATE 5 MG TAB (FP) PO SCH (21:52)
[2018-04-06] MEDS ORDERED: NITROGLYCERIN SUBLINGUAL 1/150 0.4 MG TAB SL PRN (22:30)
[2018-04-06] MEDS: LACTATED RINGERS SOLUTION 1,000 ML/1,000 ML INFUS.BAG IV SCH (23:21)
[2018-04-07] MEDS ORDERED: ceFAZolin SODIUM 1 GM VIAL ONE ×3 (04:26→21:16)
[2018-04-07] MEDS ORDERED: DEXTROSE 5%-WATER - 50 ML IVPB ONE ×3 (04:27→21:17)
[2018-04-07] MEDS: CEFAZOLIN 1 GM in DEXTROSE 5%-WATER - 50 ML IVPB SCH ×3 (04:28→21:50)
[2018-04-07] MEDS: HEPARIN NA (PORCINE) 5,000 UNITS/ML 1ML VIAL SQ SCH ×3 (06:23→22:15)
[2018-04-07] MEDS: DOCUSATE SODIUM 100 MG CAPSULE (FP) PO SCH ×3 (06:23→22:15)
[2018-04-07] MEDS: FOLIC ACID 1 MG TABLET (FP) PO SCH (09:09)
[2018-04-07] MEDS: PANTOPRAZOLE 40 MG TABLET (FP) PO SCH (09:09)
[2018-04-07] MEDS: FERROUS SO4 325 MG TABLET (FP) PO SCH (09:10)
--- NOTE | 2018-04-07 11:27 | DS ---
Physical Examination Vital Signs: Vital Signs Temperature 98.9 F 04/07/18 06:53 Pulse Rate 63 04/07/18 06:53 Respiratory Rate 20 04/07/18 06:53 Blood Pressure 101/53 04/07/18 06:53 O2 Sat by Pulse Oximetry (%) 95 04/06/18 21:00 Constitutional: Yes: Well Nourished, No Distress, Calm Cardiovascular: Yes: Regular Rate and Rhythm Respiratory: Yes: Regular Gastrointestinal: Yes: Normal Bowel Sounds Musculoskeletal: Yes: Back Pain Extremities: Yes: WNL Edema: No Peripheral Pulses WNL: Yes Neurological: Yes: Alert, Oriented Psychiatric: Yes: Alert, Oriented Labs: CBC, BMP 04/06/18 07:00 04/06/18 07:00 Discharge Summary Reason For Visit: LUMBAR 3 SACRAL LAMINECTOMIES W POSS INTERBODY CAG Current Active Problems Colon adenoma (Acute) Discogenic syndrome, lumbar (Acute) Diverticula of colon (Acute) Dysphagia (Acute) Esophageal spasm (Acute) HTN (hypertension) (Acute) Hyperglycemia (Acute) Leukocytosis (Acute) Nutcracker esophagus (Acute) Vomiting (Acute) Hospital Course: Operative Date: 04/04/18 Pre-Operative Diagnosis: lumbar stenosis, Degenerative disc disease, splondylosis, Operation: L3-S1 lumbar laminectomies with microdiscectomies and interbody cages at L4-L5 and L5-S1, and posterior fuison. Post-Operative Diagnosis: Same as Pre-op Surgeon: Cleveland Kimble Bill Collector: Lori Velasquez Anesthesiologist/CATALYST RECOVERY OPERATOR: Julio Rosenbaum Anesthesia: General Estimated Blood Loss (mls): 750 Drains & Tubes with Location: J/P to at right lumbar paravetebral area Drains, Volume Out (mls): 100 (maloney) Fluid Volume Replaced (mls): 2,300 Operative Report Dictated: Yes TLSO brace pain control Condition: Stable - Instructions Diet, Activity, Other Instructions: Post Operative Instructions Physical Activity Resume your normal everyday activity as tolerated. No heavy lifting or exercise until seen by your surgeon. You may walk unlimited amounts and climb stairs. You may resume driving the car when you feel safe and comfortable behind the wheel and you are no longer wearing your brace. Do not operate a vehicle while taking narcotic medication. Brace If you had back surgery, wear TLSO Brace whenever out of bed. May remove to sleep and shower. . Wound Care Keep your incision clean, dry and covered at all times. Apply an occlusive dressing (Saran wrap or Tegaderm) when showering to avoid getting your incision wet. Do not submerge incision or apply ointments or creams. The rochelle will be removed in the office in 10-14 days post-op. Diet There are no dietary restrictions. Eat healthy, high-fiber foods. Drink 6-8 glasses of liquid each day. This will assist in keeping your bowels regular. Pain Management You may take Tylenol or acetaminophen. Any pain prescription medication ordered should be taken as prescribed for moderate to severe pain. Call Dr Martinez for any of the following: Severe pain not relieved by medication Fever of 101 or higher Excessive bleeding or drainage on dressing Inability to urinate Any chest pain or shortness of breath, seek Emergency Care. Call the office to confirm a post-operative appointment 7-10 days post-op Cleveland Kimble MD [facility] [address] [place] [address] Disposition: VNS/HOME HEALTH CARE - Home Medications Comprehensive Discharge Medication List: Ambulatory Orders Metoprolol Succinate [Toprol Xl] 50 mg PO DAILY 09/11/14 Nitroglycerin Sublingual [Nitrostat -] 0.4 mg SL PRN PRN 09/11/14 Solifenacin Succinate [VESIcare] 10 mg PO HS 09/11/14 Acetaminophen [Tylenol] 650 mg PO PRN PRN 09/24/14 Diltiazem Cd [Cardizem Cd -] 240 mg PO DAILY 09/24/14 Losartan/Hydrochlorothiazide [Losartan-Hctz 100-25 mg Tab] 1 each PO DAILY 09/24 Pantoprazole Sodium [Protonix -] 40 mg PO DAILY #40 tablet.ec 09/30/14 Alprazolam 1 mg PO PRN PRN 04/03/18 Aspirin [Ecotrin] 81 mg PO DAILY 04/03/18 Cholecalciferol (Vitamin D3) [Vitamin D3 -] 400 unit PO DAILY 04/03/18 Multivit-Min/Iron/Folic/Lutein [Centrum Silver Women Tablet] 1 each PO DAILY 06/13 Walker [Ultra-Light Rollator] 1 each 5XD #1 each 04/06/18
--- NOTE | 2018-04-07 11:27 | PN ---
Progress Note, Physician Chief Complaint: s/p L3-S1 lumbar laminectomies with microdiscectomies and interbody cages at L4- L5 and L5-S1, and posterior fuison. History of Present Illness: NAD ELIA removed BP on the low end Seen by GI for esophageal varices, started on Nitro PRN, not given due to hypotension Daughter unable to pick her up today, will go home in AM - Current Medication List Current Medications: Active Medications Al Hydroxide/Mg Hydroxide (Mylanta Oral Suspension -) 30 ml PO Q6H PRN PRN Reason: DYSPEPSIA Alprazolam (Xanax -) 1 mg PO DAILY PRN PRN Reason: ANXIETY Dexamethasone Sodium Phosphate (Decadron Injection -) 4 mg IVPUSH ONCE PRN PRN Reason: NAUSEA AND/OR VOMITING Diltiazem HCl (Cardizem Cd -) 240 mg PO DAILY [facility] Last Admin: 04/07/18 09:09 Dose: 240 mg Diphenhydramine HCl (Benadryl Injection -) 12.5 mg IVPUSH ONCE PRN PRN Reason: FOR ITCHING Diphenhydramine HCl (Benadryl -) 25 mg PO Q6H PRN PRN Reason: FOR ITCHING Docusate Sodium (Colace -) 100 mg PO TID [facility] Last Admin: 04/07/18 06:23 Dose: 100 mg Fentanyl (Sublimaze Injection -) 50 mcg IVPUSH [id number] PRN PRN Reason: PAIN-PACU ORDER X 4 DOSES ONLY Ferrous Sulfate (Feosol -) 325 mg PO DAILY [facility] Last Admin: 04/07/18 09:10 Dose: 325 mg Folic Acid (Folic Acid -) 1 mg PO DAILY [facility] Last Admin: 04/07/18 09:09 Dose: 1 mg Heparin Sodium (Porcine) (Heparin -) 5,000 unit SQ TID [facility] Last Admin: 04/07/18 06:23 Dose: 5,000 unit Lactated Ringer's (Lactated Ringers Solution) 1,000 ml in 1,000 mls @ 125 mls/ hr IV ASDIR [facility] Last Admin: 04/06/18 23:21 Dose: 125 mls/hr Cefazolin Sodium 1 gm/ (Dextrose) 50 mls @ 100 mls/hr IVPB Q8H [facility] Last Admin: 04/07/18 04:28 Dose: 100 mls/hr Losartan Potassium (Cozaar -) 50 mg PO DAILY [facility] Metoprolol Succinate (Toprol Xl -) 25 mg PO DAILY [facility] Nitroglycerin (Nitrostat -) 0.4 mg SL Q5M PRN PRN Reason: ESOPHAGEAL SPASM Ondansetron HCl (Zofran Injection) 4 mg IVPUSH Q4H PRN PRN Reason: NAUSEA AND/OR VOMITING Last Admin: 04/05/18 11:27 Dose: 4 mg Ondansetron HCl (Zofran Injection) 4 mg IVPUSH Q6H PRN PRN Reason: NAUSEA Oxycodone HCl (Roxicodone -) 10 mg PO Q4H PRN PRN Reason: PAIN LEVEL 4 - 6 Last Admin: 04/05/18 21:15 Dose: 10 mg Pantoprazole Sodium (Protonix -) 40 mg PO DAILY [facility] Last Admin: 04/07/18 09:09 Dose: 40 mg Promethazine HCl (Phenergan Injection -) 12.5 mg IVPB Q6H PRN PRN Reason: NAUSEA AND/OR VOMITING Solifenacin (Vesicare -) 10 mg PO HS [facility] Last Admin: 04/06/18 21:52 Dose: 10 mg - Objective Vital Signs: Vital Signs Temperature 98.9 F 04/07/18 06:53 Pulse Rate 63 04/07/18 06:53 Respiratory Rate 20 04/07/18 06:53 Blood Pressure 101/53 04/07/18 06:53 O2 Sat by Pulse Oximetry (%) 95 04/06/18 21:00 Constitutional: Yes: Well Nourished, No Distress, Calm Cardiovascular: Yes: Regular Rate and Rhythm Respiratory: Yes: Regular Gastrointestinal: Yes: Normal Bowel Sounds Musculoskeletal: Yes: Back Pain, Muscle Weakness Edema: No Peripheral Pulses WNL: Yes Neurological: Yes: Alert, Oriented Psychiatric: Yes: Alert, Oriented Labs: CBC, BMP 04/06/18 07:00 04/06/18 07:00 Problem List - Problems (1) Discogenic syndrome, lumbar Assessment/Plan: s/p L3-S1 lumbar laminectomies with microdiscectomies and interbody cages at L4- L5 and L5-S1, and posterior fuison. -Pain management -Seen by Neurosurgery -Cleared to be discharged -Physical therapy at home with VNS Code(s): M51.26 - OTHER INTERVERTEBRAL DISC DISPLACEMENT, LUMBAR REGION (2) HTN (hypertension) Assessment/Plan: -Hypotensive lately -Decrease metoprolol to 25 mg po daily -decrease Losartan to 50 mg po daily -Monitor BP -IVF Code(s): I10 - ESSENTIAL (PRIMARY) HYPERTENSION (3) Nutcracker esophagus Assessment/Plan: -Seen by GI -Nitrostat SL PRN, hold if SBP below 100 mm Hg, not to be given during discharge , if she has trouble swallowing outpatient, instructed to return to ER -Cepacol lozenges -Mylanta PRN Code(s): K22.4 - DYSKINESIA OF ESOPHAGUS (4) Dysphagia Code(s): R13.10 - DYSPHAGIA, UNSPECIFIED Qualifiers: Dysphagia type: pharyngeal phase Qualified Code(s): R13.13 - Dysphagia, pharyngeal phase (5) Esophageal spasm Code(s): K22.4 - DYSKINESIA OF ESOPHAGUS Assessment/Plan see problem list DVT prophylaxis
--- NOTE | 2018-04-07 14:22 | PN ---
Progress Note (short form) - Note Progress Note: 68yo F s/p L3-S1 for laminectomy with fusion, pt seen at bedside. Pt denies any weakness or numbness. Pt complaining of some nausea PE: Gen: A&O x3 Resp: breathing comfortably Ext: no weakness or numbness Back: incisions clean with no erythema, drain in place with serosanguinous drainage. Problem List - Problems (1) Discogenic syndrome, lumbar Assessment/Plan: Plan -back drain pulled at bedside -pt is cleared from neurosurgery stand point for discharge -discharge per medicine recs. Code(s): M51.26 - OTHER INTERVERTEBRAL DISC DISPLACEMENT, LUMBAR REGION
[2018-04-07] MEDS ORDERED: BENZOCAINE/MENTH/CETYLPYRD CL 1 EACH LOZENGE MM PRN (19:07)
[2018-04-07] MEDS ORDERED: MENTHOL/PHENOL 1 EACH UD MM PRN (19:07)
--- NOTE | 2018-04-07 20:20 | PN ---
GI Progress Note Subjective: GI NOte: Tolerated fruit and yogurt for breakfast but vomited up dinner. Still having upper retrosternal pain. - Objective Vital Signs: Vital Signs Temperature 99.3 F 04/07/18 17:32 Pulse Rate 65 04/07/18 17:32 Respiratory Rate 22 04/07/18 17:32 Blood Pressure 112/57 04/07/18 17:32 O2 Sat by Pulse Oximetry (%) 95 04/07/18 09:00 Constitutional: Calm ...Auscultate: Yes: Normoactive Bowel Sounds ...Palpate: Yes: Soft, Other (nontender) Labs: CBC, BMP 04/06/18 07:00 04/06/18 07:00 Problem List - Problems (1) Dysphagia Assessment/Plan: Persistent esophageal spasms. Continue Ca fatuma. Nitroglycerin only if absolutely necessary to relieve an impaction or severe pain. Anticipate resolution with more time. Code(s): R13.10 - DYSPHAGIA, UNSPECIFIED Qualifiers: Dysphagia type: pharyngeal phase Qualified Code(s): R13.13 - Dysphagia, pharyngeal phase (2) Nutcracker esophagus Code(s): K22.4 - DYSKINESIA OF ESOPHAGUS (3) Colon adenoma Code(s): D12.6 - BENIGN NEOPLASM OF COLON, UNSPECIFIED (4) Diverticula of colon Code(s): K57.30 - DVRTCLOS OF LG INT W/O PERFORATION OR ABSCESS W/O BLEEDING (5) Vomiting Code(s): R11.10 - VOMITING, UNSPECIFIED (6) Esophageal spasm Code(s): K22.4 - DYSKINESIA OF ESOPHAGUS (7) Obesities, morbid Code(s): E66.01 - MORBID (SEVERE) OBESITY DUE TO EXCESS CALORIES
[2018-04-07] MEDS: SOLIFENACIN SUCCINATE 5 MG TAB (FP) PO SCH (22:15)
[2018-04-08] MEDS ORDERED: DEXTROSE 5%-WATER - 50 ML IVPB ONE (00:02)
[2018-04-08] MEDS ORDERED: ceFAZolin SODIUM 1 GM VIAL ONE (00:02)
[2018-04-08] MEDS: CEFAZOLIN 1 GM in DEXTROSE 5%-WATER - 50 ML IVPB SCH ×2 (03:22→12:15)
[2018-04-08] MEDS: HEPARIN NA (PORCINE) 5,000 UNITS/ML 1ML VIAL SQ SCH (06:33)
[2018-04-08] MEDS: DOCUSATE SODIUM 100 MG CAPSULE (FP) PO SCH (06:33)
--- NOTE | 2018-04-08 09:44 | PN ---
GI Progress Note Subjective: GI NOte: Throat is less sore. Tolerated breakfast. Feeling better. - Objective Vital Signs: Vital Signs Temperature 99.4 F 04/08/18 05:00 Pulse Rate 73 04/08/18 05:00 Respiratory Rate 22 04/08/18 05:00 Blood Pressure 94/59 04/08/18 05:00 O2 Sat by Pulse Oximetry (%) 95 04/07/18 21:00 Constitutional: Calm Gastrointestinal Inspection: Yes: Distention ...Auscultate: Yes: Normoactive Bowel Sounds ...Palpate: Yes: Soft, Other (nontender) Labs: CBC, BMP 04/06/18 07:00 04/06/18 07:00 Problem List - Problems (1) Dysphagia Assessment/Plan: Resolving esophageal spasms. Continue Ca fatuma. Anticipate discharge if tolerates lunch. Code(s): R13.10 - DYSPHAGIA, UNSPECIFIED Qualifiers: Dysphagia type: pharyngeal phase Qualified Code(s): R13.13 - Dysphagia, pharyngeal phase (2) Nutcracker esophagus Code(s): K22.4 - DYSKINESIA OF ESOPHAGUS (3) Colon adenoma Code(s): D12.6 - BENIGN NEOPLASM OF COLON, UNSPECIFIED (4) Diverticula of colon Code(s): K57.30 - DVRTCLOS OF LG INT W/O PERFORATION OR ABSCESS W/O BLEEDING (5) Vomiting Code(s): R11.10 - VOMITING, UNSPECIFIED (6) Esophageal spasm Code(s): K22.4 - DYSKINESIA OF ESOPHAGUS (7) Obesities, morbid Code(s): E66.01 - MORBID (SEVERE) OBESITY DUE TO EXCESS CALORIES
[2018-04-08] MEDS ORDERED: metoPROLOL SUCCINATE 25 MG TAB.SR.24H (FP) PO SCH (10:00)
[2018-04-08] MEDS ORDERED: LOSARTAN POTASSIUM 50 MG TABLET (FP) PO SCH (10:00)
[2018-04-08] MEDS: FERROUS SO4 325 MG TABLET (FP) PO SCH (10:25)
[2018-04-08] MEDS: PANTOPRAZOLE 40 MG TABLET (FP) PO SCH (10:25)
[2018-04-08] MEDS: FOLIC ACID 1 MG TABLET (FP) PO SCH (10:25)
[2018-04-08 11:42] VITALS: BP 116/63; PULSE 82; TEMP 98.4
--- NOTE | 2018-04-08 16:22 | PN ---
Progress Note (short form) - Note Progress Note: PATIENT SEEN AND EXAMINED MILD DISTRESS DISCHARGED YESTERDAY AWAITNG FOR HER DAUGHTER TO PICK HER UP. I GAVE HER MY BUSINESS CARD IF SHE MAY NEED AND HELP OUTPATIENT.
== END 2018-04-08 15:52 | disposition home health service (06) | DRG 460 ==
LOC: JSAMEDAYSX 06:19 → EDSTATUS 08:00 → J8W 15:22
PROVIDERS: ADMIT Family Medicine; ATTEND Family Medicine
PROC: 0SG00AJ Fusion of Lumbar Vertebral Joint with Interbody Fusion Device, Posterior Approach, Anterior Column, Open Approach (ICD-10-PCS; 2018-04-04)
PROC: 0JX70ZZ Transfer Back Subcutaneous Tissue and Fascia, Open Approach (ICD-10-PCS; 2018-04-04)
PROC: 0SB20ZZ Excision of Lumbar Vertebral Disc, Open Approach (ICD-10-PCS; 2018-04-04)
PROC: 01NB0ZZ Release Lumbar Nerve, Open Approach (ICD-10-PCS; 2018-04-04)
PROC: 0SG30AJ Fusion of Lumbosacral Joint with Interbody Fusion Device, Posterior Approach, Anterior Column, Open Approach (ICD-10-PCS; principal; 2018-04-04 08:00)
DX: M48.07 Spinal stenosis, lumbosacral region (principal); Z68.42 Body mass index [BMI] 45.0-49.9, adult; M48.8X9 Other specified spondylopathies, site unspecified; M51.26 Other intervertebral disc displacement, lumbar region; M47.9 Spondylosis, unspecified; I10 Essential (primary) hypertension; D72.829 Elevated white blood cell count, unspecified; R73.9 Hyperglycemia, unspecified; K22.4 Dyskinesia of esophagus; R13.10 Dysphagia, unspecified; K57.30 Diverticulosis of large intestine without perforation or abscess without bleeding
CPT/HCPCS: 36415; 72131-TC; 76000-TC-FY; 80048; 80053; 80076; 81003; 83036; 85025; 85027; 86850; 86900; 86901; 88304-TC; 90670; 93005; 93010; 94760; 97116-GP; 97162-GP; J0131; J1644

== ENCOUNTER 2022-03-03 08:39 | Day surgery (SDC) | payer OTHER, BC ==
[2022-02-26 10:14] VITALS: BMI 49.1
[2022-03-03] MEDS ORDERED: CYCLOPENTOLATE 2% OPHTH SOLN 2 ML BOTTLE ONE (09:04)
[2022-03-03] MEDS ORDERED: PHENYLEPHRINE 2.5% OPHTH SOLN 15 ML BOTTLE ONE (09:04)
[2022-03-03] MEDS ORDERED: CIPROFLOXACIN 0.3% EYE DROPS 5 ML BOTTLE ONE (09:04)
[2022-03-03] MEDS ORDERED: TROPICAMIDE 1% OPHTH SOLN 15 ML BOTTLE ONE (09:04)
[2022-03-03] MEDS ORDERED: CIPROFLOXACIN 0.3% EYE DROPS 5 ML BOTTLE OD ONE ×3 (09:05→09:15)
[2022-03-03] MEDS ORDERED: TROPICAMIDE 1% OPHTH SOLN 15 ML BOTTLE OD ONE ×3 (09:05→09:15)
[2022-03-03] MEDS ORDERED: PHENYLEPHRINE 2.5% OPHTH SOLN 15 ML BOTTLE OD ONE ×3 (09:05→09:15)
[2022-03-03] MEDS ORDERED: CYCLOPENTOLATE 2% OPHTH SOLN 2 ML BOTTLE OD ONE ×3 (09:05→09:15)
[2022-03-03] MEDS ORDERED: MIDAZOLAM HCL 2 MG/2 ML SINGLE DOSE VIAL ONE (10:14)
[2022-03-03 10:44] VITALS: TEMP 97
[2022-03-03 10:58] VITALS: BP 110/52; PULSE 54
[2022-03-03] MEDS ORDERED: TETRACAINE 0.5% OPHTH SOLN 2 ML BOTTLE ONE (12:30)
[2022-03-03] MEDS ORDERED: NEO/POLYMYX B SULF/DEXAMETH OPHTHALMIC 5ML BOTTLE ONE (12:30)
[2022-03-03] MEDS ORDERED: BSS (NA/CA/MG/K) BALANCED SALT SOLUTION OPHTH SOLN 15 ML BOTTLE ONE (12:30)
[2022-03-03] MEDS ORDERED: LIDOCAINE HCL/PF 1% SDV 5ML VIAL ONE (12:30)
[2022-03-03] MEDS ORDERED: CARBACHOL 0.01% INTRA-OCULAR 1.5 ML VIAL ONE (12:30)
== END 2022-03-03 11:19 | disposition home or self-care (01) ==
LOC: FASU 08:39
PROVIDERS: ATTEND Ophthalmology
PROC: 08RJ3JZ Replacement of Right Lens with Synthetic Substitute, Percutaneous Approach (ICD-10-PCS; principal; 2022-03-03 10:00)
DX: H26.8 Other specified cataract (principal)
CPT/HCPCS: 66984; V2632

== ENCOUNTER 2022-04-08 09:41 | Day surgery (SDC) | payer OTHER, BC ==
[2022-04-01 12:18] VITALS: BMI 49.1
[2022-04-08] MEDS ORDERED: CARBACHOL 0.01% INTRA-OCULAR 1.5 ML VIAL ONE (09:58)
[2022-04-08] MEDS ORDERED: NEO/POLYMYX B SULF/DEXAMETH OPHTHALMIC 5ML BOTTLE ONE (09:58)
[2022-04-08] MEDS ORDERED: LIDOCAINE 1% P/F 10 MG/ML VIAL ONE (09:58)
[2022-04-08] MEDS ORDERED: BSS (NA/CA/MG/K) BALANCED SALT SOLUTION OPHTH SOLN 15 ML BOTTLE ONE (09:58)
[2022-04-08] MEDS ORDERED: TETRACAINE 0.5% OPHTH SOLN 2 ML BOTTLE ONE (09:58)
[2022-04-08] MEDS ORDERED: CIPROFLOXACIN 0.3% EYE DROPS 5 ML BOTTLE ONE (10:35)
[2022-04-08] MEDS ORDERED: TROPICAMIDE 1% OPHTH SOLN 15 ML BOTTLE ONE (10:35)
[2022-04-08] MEDS ORDERED: CYCLOPENTOLATE 2% OPHTH SOLN 2 ML BOTTLE ONE (10:35)
[2022-04-08] MEDS ORDERED: PHENYLEPHRINE 2.5% OPHTH SOLN 15 ML BOTTLE ONE (10:35)
[2022-04-08] MEDS ORDERED: PHENYLEPHRINE 2.5% OPHTH SOLN 15 ML BOTTLE OS ONE ×2 (10:45→10:50)
[2022-04-08] MEDS ORDERED: TROPICAMIDE 1% OPHTH SOLN 15 ML BOTTLE OS ONE ×3 (10:45→10:55)
[2022-04-08] MEDS ORDERED: CYCLOPENTOLATE 2% OPHTH SOLN 2 ML BOTTLE OS ONE ×2 (10:50→10:55)
[2022-04-08] MEDS ORDERED: CIPROFLOXACIN 0.3% EYE DROPS 5 ML BOTTLE OS ONE ×2 (10:50→10:55)
[2022-04-08] MEDS ORDERED: MIDAZOLAM HCL 2 MG/2 ML SINGLE DOSE VIAL ONE ×2 (11:14)
[2022-04-08 11:46] VITALS: BP 117/75; TEMP 96.8
[2022-04-08 12:16] VITALS: PULSE 60
== END 2022-04-08 12:15 | disposition home or self-care (01) ==
LOC: FASU 09:41
PROVIDERS: ATTEND Ophthalmology
PROC: 08RK3JZ Replacement of Left Lens with Synthetic Substitute, Percutaneous Approach (ICD-10-PCS; principal; 2022-04-08 11:18)
DX: H26.8 Other specified cataract (principal)
CPT/HCPCS: 66984; V2632